=== PATIENT | female | born 1985 | race Caucasian/White ===

== ENCOUNTER 2017-04-13 12:16 | Inpatient (IN) | payer OTHER ==
[2017-04-13 12:39] VITALS: BMI 22.3
--- NOTE | 2017-04-13 13:06 | PDOC ---
History of Present Illness <Anabell Glez - Last Filed: 04/13/17 16:37> - General History Source: Patient Exam Limitations: No Limitations - History of Present Illness Initial Comments: 04/13/17 14:31 The patient is a 31 year old female, with a significant past medical history of Depression, Anxiety, Drug abuse who presents to the emergency department with abdominal distention today. Patient had a buttouck abscess drained at the doctor office yesterday. Patient had severe abdominal pain, 8/10 in severity, nonradiating with associated distention, nausea, diaphoresis and lightheadedness. Patient denies any trauma. Patient denies any previous surgeries. Upon arrival, patient is nauseous and is in severe pain. Patient denies chest pain, headache or dizziness. Patient denies diarrhea or constipation. Patient denies dysuria, frequency, urgency or hematuria. Patient denies sick contacts or recent travel. Allergies: NKA Past surgical history: rhinoplasty Social history: Drug abuse PCP: Dr. Dave <Elaina Huston - Last Filed: 04/13/17 17:04> - General Chief Complaint: Pain Stated Complaint: ABD PAIN Time Seen by Provider: 04/13/17 12:45 Past History - Past Medical History COPD: No Psychiatric Problems: Yes (depression, anxeity) Other medical history: drug abuse, clean for 6 months - Suicide/Smoking/Psychosocial Hx Smoking History: Never smoked Have you smoked in the past 12 months: Yes Number of Cigarettes Smoked Daily: 4 Information on smoking cessation initiated: Yes Hx Alcohol Use: No Drug/Substance Use Hx: Yes (ketamin,molley) <Anabell Glez - Last Filed: 04/13/17 16:37> <Elaina Huston - Last Filed: 04/13/17 17:04> - Past Medical History Allergies/Adverse Reactions: Allergies Allergy/AdvReac Type Severity Reaction Status Date / Time No Known Allergies Allergy Verified 04/13/17 12:32 Review of Systems - Review of Systems Able to Perform ROS?: Yes Comments:: 04/13/17 14:31 GENERAL/CONSTITUTIONAL: No fever or chills. No weakness. HEAD, EYES, EARS, NOSE AND THROAT: No change in vision. No ear pain or discharge. No sore throat. GASTROINTESTINAL: + nausea. +abdominal pain. +distention. No vomiting, diarrhea or constipation. GENITOURINARY: No dysuria, frequency, or change in urination. CARDIOVASCULAR: No chest pain or shortness of breath. RESPIRATORY: No cough, wheezing, or hemoptysis. MUSCULOSKELETAL: No joint or muscle swelling or pain. No neck or back pain. SKIN: No rash NEUROLOGIC: No headache, vertigo, loss of consciousness, or change in strength/ sensation. ENDOCRINE: No increased thirst. No abnormal weight change. HEMATOLOGIC/LYMPHATIC: No anemia, easy bleeding, or history of blood clots. ALLERGIC/IMMUNOLOGIC: No hives or skin allergy. <Elaina Huston - Last Filed: 04/13/17 17:04> *Physical Exam - Vital Signs Last Vital Signs Temp Pulse Resp BP Pulse Ox 98.0 F 125 H 18 122/69 100 04/13/17 12:34 04/13/17 12:34 04/13/17 12:34 04/13/17 12:34 04/13/17 12:34 <Anabell Glez - Last Filed: 04/13/17 16:37> - Vital Signs Last Vital Signs Temp Pulse Resp BP Pulse Ox 98.0 F 125 H 18 122/69 100 04/13/17 12:34 04/13/17 12:34 04/13/17 12:34 04/13/17 12:34 04/13/17 12:34 - Physical Exam Comments: 04/13/17 14:31 GENERAL: Awake, alert, and fully oriented, in no acute distress HEAD: No signs of trauma EYES: PERRLA, EOMI, sclera anicteric, conjunctiva clear ENT: Auricles normal inspection, hearing grossly normal, nares patent, oropharynx clear without exudates. Moist mucosa NECK: Normal ROM, supple, no lymphadenopathy, JVD, or masses LUNGS: Breath sounds equal, clear to auscultation bilaterally. No wheezes, and no crackles HEART: +Tachycardic.Regular rhythm, normal S1 and S2, no murmurs, rubs or gallops ABDOMEN: Soft, nontender. No guarding, no rebound. No masses. +Hypoactive bowel sounds. +Distended. EXTREMITIES: Normal range of motion, no edema. No clubbing or cyanosis. No cords, erythema, or tenderness NEUROLOGICAL: Cranial nerves II through XII grossly intact. Normal speech, normal gait SKIN: Warm, Dry, normal turgor, no rashes or lesions noted. PELVIC: + Scant brown vaginal discharge. No CMT. No adnexal tenderness. RECTAL: No stool in vault. No external or internal hemorrhoids. <Elaina Huston - Last Filed: 04/13/17 17:04> ED Treatment Course - LABORATORY CBC & Chemistry Diagram: 04/13/17 11:30 04/13/17 13:55 <Anabell Glez - Last Filed: 04/13/17 16:37> - LABORATORY CBC & Chemistry Diagram: 04/13/17 11:30 04/13/17 13:55 <Elaina Huston - Last Filed: 04/13/17 17:04> Medical Decision Making - Critical Care Time Total Critical Care Time (minutes): 60 Critical Care Statement: The care of this patient involved high complexity decision making to prevent further life threatening deterioration of the patient 's condition and/or to evaluate & treat vital organ system(s) failure or risk of failure. - Medical Decision Making 04/13/17 13:39 a/p: 31yo female with distended abd -recent deep I/D yesterday -will obtain stat CXR and ABD xray to r/o free air -will obtain labs npo ivf hydration will discuss with surgery 04/13/17 13:40 xray shows dilated loops call placed to Dr. Chaney 04/13/17 16:[address] chaney who will follow along 04/13/17 16:38 beta hcg + in urine ultrasound ordered will order beta quant 04/13/17 16:38 hgb 6.2 discuss w patient, now states having vaginal spotting x 1 month with brown discharge has IUD bimanual exam no adnexal ttp, no cmt, scant brown discharge rectal exam negative agrees to blood transfusion 04/13/17 16:39 ultrasound shows R adnexal mass, FF abd, most likely ruptured ectopic 04/13/17 16:39 dr chaney updated that more TOWER OPERATOR path not gen sx call to Dr. Lemos who is coming from clinic to take the patient to the OR BP 118/85 <Anabell Glez - Last Filed: 04/13/17 16:37> - Critical Care Time Total Critical Care Time (minutes): 60 Critical Care Statement: The care of this patient involved high complexity decision making to prevent further life threatening deterioration of the patient 's condition and/or to evaluate & treat vital organ system(s) failure or risk of failure. - Medical Decision Making 04/13/17 13:[address] Chaney via office number. Awaiting call back. 04/13/17 13:50 Dr. Chaney returned the page and the patients case was discussed. 04/13/17 16:21 Dr. Chaney paged. Awaiting call back. 04/13/17 16:[address] Lemos via cell phone number. Discussed case. Will take patient to OR Called OR Kristin for Dr. Valderrama. Will accept patient. 04/13/17 16:32 Valentina returned the page and the patients case was discussed. 04/13/17 17:04 Nancy in the ED. Discussed patient's case. Patient to be taken to the OR. <Elaina Huston - Last Filed: 04/13/17 17:04> *DC/Admit/Observation/Transfer - Discharge Dispostion Admit: Yes - Attestations Physician Attestion: 04/13/17 16:36 I, Dr. Anabell Glez DO, attest that this document has been prepared under my direction and personally reviewed by me in its entirety. I further attest, that it accurately reflects all work, treatment, procedures and medical decision -making performed by me. <Anabell Glez - Last Filed: 04/13/17 16:37> - Attestations Scribe Attestion: 04/13/17 14:31 Documentation prepared by Elaina Huston, acting as medical front desk coordinator for Anabell Glez DO <Elaina Huston - Last Filed: 04/13/17 17:04> Diagnosis at time of Disposition: Ruptured ectopic - Discharge Dispostion Condition at time of disposition: Critical - Referrals Referrals: Analy aDve MD [Primary Care Provider] -
[2017-04-13] MEDS ORDERED: ONDANSETRON 4 MG/2 ML VIAL IVPUSH ONE (13:07)
[2017-04-13] MEDS ORDERED: morphine CARPU-JECT 4 MG/1 ML DISP.SYRIN IVPUSH ONE (13:07)
[2017-04-13] MEDS ORDERED: SODIUM CHLORIDE 0.9% 1000 ML INFUS.BAG IV ONE (13:07)
[2017-04-13] MEDS ORDERED: FAMOTIDINE IV 20 MG/12 ML VIAL IVPB ONE (13:07)
[2017-04-13] MEDS ORDERED: morphine CARPU-JECT 8 MG/1 ML DISP.SYRIN ONE (13:15)
[2017-04-13] MEDS ORDERED: FAMOTIDINE 20 MG/50 ML IVPB 20 MG/50 ML MG IVPB ONE (13:15)
[2017-04-13] MEDS ORDERED: ONDANSETRON 4 MG/2 ML VIAL ONE (13:15)
[2017-04-13] MEDS ORDERED: HYDROmorphone HCL CARPU-JECT 1 MG/1 ML DISP.SYRIN IVPUSH ONE (13:48)
[2017-04-13] MEDS ORDERED: HYDROmorphone HCL CARPU-JECT 1 MG/1 ML DISP.SYRIN ONE (14:00)
[2017-04-13 14:06] LABS: MCH 29.6 pg (25.7-33.7); MCHC 33.1 g/dl (32.0-36.0); MEAN CELL VOLUME 89.3 fl (80-96); MEAN PLT VOLUME 8.1 fl (7.5-11.1); PLATELET COUNT 500 K/MM3 (134-434); RDW 15.2 % (11.6-15.6); WHITE BLOOD COUNT 20.2 K/mm3 (4.0-10.0)
[2017-04-13 14:13] LABS: URINE APPEARANCE SLCLOUDY; URINE BILIRUBIN NEGATIVE (NEGATIVE); URINE BLOOD 2+ (NEGATIVE); URINE COLOR YELLOW; URINE GLUCOSE (UA) 1+ (NEGATIVE); URINE KETONE NEGATIVE (NEGATIVE); URINE LEUK ESTERASE NEGATIVE (NEGATIVE); URINE NITRITE NEGATIVE (NEGATIVE); URINE PROTEIN NEGATIVE (NEGATIVE); URINE UROBILINOGEN NEGATIVE mg/dL (0.2-1.0)
[2017-04-13 14:30] LABS: URINE BACTERIA RARE /hpf (NONE SEEN); URINE MUCUS RARE; URINE RBC 1 /hpf (0-3); URINE WBC 15 /hpf (3-5)
[2017-04-13 14:34] LABS: INR 1.12 (0.82-1.09); PROTHROMBIN TIME (PATIENT) 12.6 SEC (9.98-11.88)
[2017-04-13 14:37] LABS: ACTIVATED PTT 25.1 SECONDS (26.9-34.4)
[2017-04-13 14:45] LABS: ALBUMIN 3.4 g/dl (3.4-5.0); ALK PHOS 72 U/L (45-117); ANION GAP 12 (8-16); BILIRUBIN,TOTAL 0.2 mg/dL (0.2-1.0); CALCIUM 8.6 mg/dL (8.5-10.1); CO2 24 mmol/L (21-32); CREATININE 0.6 mg/dL (0.55-1.02); GLUCOSE,RANDOM 104 mg/dL (74-106); MAGNESIUM 2.5 mg/dL (1.8-2.4); SGOT/AST 10 U/L (15-37); SGPT/ALT 21 U/L (12-78); TOT PROT 6.9 g/dl (6.4-8.2)
[2017-04-13] MEDS ORDERED: BUPIVACAINE HCL/PF 0.5% (5MG/ML) 10 ML VIAL ONE (17:09)
[2017-04-13] MEDS ORDERED: MIDAZOLAM HCL 2 MG/2 ML SINGLE DOSE VIAL ONE (17:23)
[2017-04-13] MEDS ORDERED: ETOMIDATE 20 MG/10 ML AMPUL IVPUSH ONE (17:26)
--- NOTE | 2017-04-13 17:37 | HP ---
Past Medical History - Primary Care Physician PCP:: Glenis Lemos - Admission Chief Complaint: 31 yrs lmp not known, > 5 years ago pt on Mirena iud . for 5 years on 08/25/2106, was not advised to get changed. presented in ER with sudden onset of pain , distemtion of abdomen, pain dizziness since last night History of Present Illness: h/o mirena inserted 5 yers ago. h/o secondary amenorrhea since then 5 years ended on 08/25/16, as per patient she was told she can keep for 1 more year .as per new research . she has been spotting last month on & off sudden pain acute in lower abdomen, accompanied by distention of abdomen , dizziness hcg 2584 miu, sono done noiup, iud in place in uterus , rt adnexa didtention around, copiuos fluid in all four quadrants of abdominal cavity rupture ectopic is suspected History Source: Patient - Past Medical History SHAREPOINT ADMIN: No: Migraine, Seizure Cardiovascular: No: HTN Pulmonary: No: Asthma Gastrointestinal: Yes: Constipation Reproductive: Yes: Other (mirena iud, 5 years . past MH before Mirena regular cycle x no pain x3-4 days) ...: 2 ...Para: 0 ...Induced : 1 Heme/Onc: Yes: Anemia Psych: Yes: Anxiety, Depression, Other (substance abuse patient is under care of psychiatrist, she follows twice a week for mental health) - Past Surgical History Hx Myomectomy: No Hx Transabdominal Cerclage: No Additional Surgical History: rhinoplasty. buttock abscess drainage rt side 2 days ago , pt on po antibiotics, does not know the name - Smoking History Smoking history: Never smoked Have you smoked in the past 12 months: Yes Aproximately how many cigarettes per day: 4 - Alcohol/Substance Use Hx Alcohol Use: No History of Substance Use: reports: Marijuana (pt also takes Erika as per ER information) Date of Last Use: 02/24/17 (approx 1 month ago ) Home Medications - Allergies Allergies/Adverse Reactions: Allergies Allergy/AdvReac Type Severity Reaction Status Date / Time No Known Allergies Allergy Verified 04/13/17 12:32 - Home Medications Home Medications: Ambulatory Orders Alprazolam [Xanax] 0.25 mg PO DAILY 04/13/17 Aripiprazole [Abilify] 10 mg PO DAILY 04/13/17 Dextroamphetamine/Amphetamine [Adderall Xr 20 mg Capsule] 20 mg PO TID 04/13/17 Sertraline HCl [Zoloft -] 25 mg PO DAILY 04/13/17 Physical Exam-FUNERAL ARRANGER Vital Signs: Vital Signs Temperature 98.8 F 04/13/17 16:15 Pulse Rate 111 H 04/13/17 16:15 Respiratory Rate 18 04/13/17 16:15 Blood Pressure 118/85 04/13/17 16:15 O2 Sat by Pulse Oximetry (%) 98 04/13/17 16:15 Constitutional: Yes: Severe Distress (pain 10/10), Pallor, Other (unable to lie flat.) Eyes: Yes: PERRL Neck: Yes: WNL Cardiovascular: Yes: Regular Rate and Rhythm, Other (tachycardia) Respiratory: Yes: WNL, CTA Bilaterally Gastrointestinal: Yes: Distention (genralized uniform distention), Tenderness ( superficial & deep tenderness all over abd), Tenderness, Rebound Renal/: Yes: CVA Tenderness - Left, CVA Tenderness - Right Pelvis: Yes: WNL External Genitalia: Yes: Normal Internal Exam Deferred: Yes Vaginal Exam: Yes: Discharge. No: Bleeding Cervix: Yes: Cerv Motion Tenderness, Other (iud dstring visualized). No: Bleeding Uterus: Yes: Normal, Tender Adnexa: Tender: Bilateral (unable to palpate due to pain ) Breast(s): Yes: WNL. No: Mass, Skin Changes Musculoskeletal: Yes: WNL Extremities: Yes: WNL. No: Calf Tenderness Edema: No Integumentary: Yes: Incision (right buttock area of incision drainage covered with dressing, yellowish discharge, large area of erythema with tenderness around), Rash (pigmented circular rash more prominent on upper extremities), Tattoos Neurological: Yes: WNL, Alert, Oriented ...Motor Strength: WNL Psychiatric: Yes: WNL, Alert, Oriented, Other (anxious & nervous) Labs: CBC, BMP 04/13/17 11:30 04/13/17 13:55 Laboratory Tests 04/13/17 04/13/17 04/13/17 11:30 13:55 14:43 AST 10 L ALT 21 Albumin 3.4 Beta HCG, Quant Urine Protein Negative Urine Glucose (UA) 1+ H Urine Blood 2+ H Urine WBC (Auto) 15 Urine RBC (Auto) 1 Stool Occult Blood Negative 04/13/17 15:18 AST ALT Albumin Beta HCG, Quant 2584.9 Urine Protein Urine Glucose (UA) Urine Blood Urine WBC (Auto) Urine RBC (Auto) Stool Occult Blood Problem List - Problem (1) Ruptured left tubal ectopic causing hemoperitoneum Code(s): O00.102 - LEFT TUBAL WITHOUT INTRAUTERINE ; K66.1 - HEMOPERITONEUM (2) Acute blood loss anemia Code(s): D62 - ACUTE POSTHEMORRHAGIC ANEMIA Assessment/Plan pt in ac distress due to rupture ectopic , hemoperitoeum , iud in utero , , severe anemia plan pt receiving 1st unit of pack cell
[2017-04-13] MEDS ORDERED: ceFAZolin SODIUM 1 GM VIAL IVPB ONE (17:46)
[2017-04-13] MEDS ORDERED: ceFAZolin SODIUM 1 GM VIAL ONE (18:00)
[2017-04-13] MEDS ORDERED: SODIUM CHLORIDE 0.9% P/F 10 ML VIAL IJ ONE (18:00)
[2017-04-13] MEDS ORDERED: DEXAMETHASONE SOD PHOSPHATE 4 MG/1 ML VIAL ONE (18:04)
[2017-04-13] MEDS ORDERED: GLYCOPYRROLATE 0.2 MG/1 ML VIAL ONE (18:19)
[2017-04-13] MEDS ORDERED: NEOSTIGMINE METHYLSULFATE 0.5 MG/ML - 10 ML MDV ONE (18:22)
[2017-04-13] MEDS ORDERED: KETOROLAC TROMETHAMINE 30 MG/1 ML VIAL ONE (18:41)
[2017-04-13] MEDS ORDERED: DEXAMETHASONE SOD PHOSPHATE 4 MG/1 ML VIAL IVPUSH PRN ×2 (19:08→20:09)
[2017-04-13] MEDS ORDERED: ONDANSETRON 4 MG/2 ML VIAL IVPUSH PRN ×2 (19:08→20:09)
[2017-04-13] MEDS ORDERED: PROMETHAZINE HCL 25 MG/1 ML VIAL IVPB PRN ×2 (19:08→20:09)
[2017-04-13] MEDS ORDERED: HYDROmorphone HCL CARPU-JECT 2 MG/1 ML DISP.SYRIN ONE (19:09)
[2017-04-13] MEDS: HYDROmorphone HCL CARPU-JECT 1 MG/1 ML DISP.SYRIN IVPUSH PRN ×2 (19:10→19:15)
[2017-04-13] MEDS ORDERED: HYDROmorphone *PCA* 10MG/50ML DISP.SYRIN PCA ONE (19:10)
[2017-04-13] MEDS ORDERED: LACTATED RINGERS SOLUTION 1,000 ML IV SCH (19:15)
[2017-04-13] MEDS ORDERED: HYDROmorphone *PCA* 10MG/50ML DISP.SYRIN PCA SCH ×2 (19:15→20:09)
[2017-04-13] MEDS ORDERED: DEXTROSE 5%-LACTATED RINGERS 1,000 ML IV SCH (19:30)
[2017-04-13 19:45] LABS: TOTAL CELLS COUNTED 100
[2017-04-13 19:47] LABS: PLATELET ESTIMATE SLT INCREASE
[2017-04-13] MEDS ORDERED: HYDROmorphone HCL CARPU-JECT 1 MG/1 ML DISP.SYRIN IVPUSH PRN (20:09)
[2017-04-13 21:05] LABS: URINE LEUK ESTERASE Negative (NEGATIVE)
--- NOTE | 2017-04-13 21:05 | OP ---
Operative Note - Note: Operative Date: 04/13/17 Pre-Operative Diagnosis: rupture ectopic , with hemoperitoneum iud in utero Operation: expl lap, left salpingectomy, evacuation of blood clots , removal of iud Findings: peritoneal cavity full of blood clots approx 1000 ml , ut ns Left tube distended in midamulary portion, ruptured at antimesentric border , salpingectomy done left ovary, Rigt Tube & Right ovary normal Surgeon: Glenis Lemos Board Layer: Emani Gonzales Anesthesiologist/THREAD LASTER: Amaury Eaton Anesthesia: General Specimens Removed: blood clots. Left tube & contents. iud Estimated Blood Loss (mls): 1,000 Drains, Volume Out (mls): 800 (jessika color , garcia out put ) Blood Volume Replaced (mls): 1,000 (3 units pack cells, 4th started ) Fluid Volume Replaced (mls): 1,200 (iv Ancef 1 gm ) Operative Report Dictated: Yes
[2017-04-14] MEDS: CLINDAMYCIN 900 MG PREMIX IVPB 900 MG/50 ML BAG IVPB SCH ×3 (01:34→19:30)
[2017-04-14] MEDS ORDERED: oxyCODONE HCL 5 MG TABLET PO PRN (07:59)
--- NOTE | 2017-04-14 08:33 | PN ---
Progress Note (SOAP) - Subjective Chief Complaint: c/o pain , 01/03, , unable to move side to side not oob yet pt has not voided since garcia catheter is taken out History of Present Illness: s/p expl lap left salpingectomy , evacuation hemoperitoneum, removal of iud on 04/13/17 POD #1 - Current Medications Current Medications: Active Medications Acetaminophen (Tylenol -) 650 mg PO Q4H PRN PRN Reason: FEVER OR PAIN Ascorbic Acid (Vitamin C -) 500 mg PO BID BALDEV Diphenhydramine HCl (Benadryl Injection -) 12.5 mg IVPUSH ONCE PRN PRN Reason: FOR ITCHING Docusate Sodium (Colace -) 100 mg PO TID BALDEV Ferrous Sulfate (Feosol -) 325 mg PO TIDCM [facility] Dextrose/Lactated Ringer's (D5-Lr -) 1,000 mls @ 125 mls/hr IV ASDIR BALDEV Last Admin: 04/13/17 21:30 Dose: 125 mls/hr Clindamycin Phosphate (Cleocin 900 Mg Premix Ivpb -) 900 mg in 50 mls @ 100 mls /hr IVPB Q8H-IV BALDEV Stop: 04/15/17 01:59 Last Admin: 04/14/17 01:34 Dose: 100 mls/hr Ibuprofen (Motrin -) 600 mg PO Q4H PRN PRN Reason: PAIN Ondansetron HCl (Zofran Injection) 4 mg IVPUSH Q4H PRN PRN Reason: NAUSEA AND/OR VOMITING Oxycodone HCl (Roxicodone -) 5 mg PO Q4H PRN PRN Reason: PAIN Oxycodone HCl (Roxicodone -) 10 mg PO Q3H PRN PRN Reason: SEVERE PAIN Simethicone (Mylicon -) 80 mg PO Q4H PRN PRN Reason: GAS - Objective Vital Signs: Vital Signs Temperature 98.6 F 04/14/17 06:00 Pulse Rate 84 04/14/17 06:00 Respiratory Rate 18 04/14/17 06:00 Blood Pressure 103/57 04/14/17 06:00 O2 Sat by Pulse Oximetry (%) 99 04/13/17 21:30 Constitutional: Yes: Calm, Other (In pain ) Eyes: Yes: WNL HENT: Yes: WNL Neck: Yes: WNL, Supple Cardiovascular: Yes: WNL Respiratory: Yes: WNL, Regular, CTA Bilaterally (shallow breathing ) Gastrointestinal: Yes: WNL, Normal Bowel Sounds, Soft. No: Distention, Tenderness Genitourinary: No: CVA Tenderness - Left, CVA Tenderness - Right Extremities: Yes: WNL. No: Calf Tenderness Edema: No Integumentary: Yes: Other (Rt Buttock abscess incision hardly any drainage is noted .induration around, erythema around is less than yesterday ) Wound/Incision: Yes: Sutures Intact, Other (Fressing intact, not changed yet ). No: Reddened, Bleeding Neurological: Yes: WNL ...Motor Strength: Yes: WNL Psychiatric: Yes: WNL, Alert, Oriented Labs Lab Results: CBC, BMP 04/13/17 11:30 04/13/17 13:55 Laboratory Tests 04/14/17 04/14/17 08:30 08:30 WBC 16.9 H RBC 3.46 L D Hgb 10.2 L D Hct 30.2 L D Plt Count 294 D Neutrophils % 73.2 Lymphocytes % 17.3 Sodium 138 Potassium 4.7 Chloride 105 Carbon Dioxide 26 Anion Gap 7 L BUN 6 L D Random Glucose 107 H Calcium 8.1 L Problem List - Problems (1) Ruptured left tubal ectopic causing hemoperitoneum Code(s): O00.102 - LEFT TUBAL WITHOUT INTRAUTERINE ; K66.1 - HEMOPERITONEUM (2) Acute blood loss anemia Code(s): D62 - ACUTE POSTHEMORRHAGIC ANEMIA (3) Encounter for removal of intrauterine contraceptive device (IUD) Code(s): Z30.432 - ENCOUNTER FOR REMOVAL OF INTRAUTERINE CONTRACEPTIVE DEVICE Assessment/Plan s/p expl lap , Left salpingectomy , evacuation hemoperitoneum, IUD removal s/p 4 units pack cell units . h/o depression & anxiety, Pt in pain . post op blood results still pending Plan : encourage deep breathing, use Incentive spirometer encourage po fluids encourage ambulation advance diet . d/c REFUSE DRIVER , change to PO pain meds ct iV clindamycin po iron & vitamins
--- NOTE | 2017-04-14 08:38 | PN ---
Progress Note (short form) - Note Progress Note: ID consult dictated d/w Dr Cruz imp/reccd 31 year old female with pmh of anxiety, depression, ADHD, recurrent skin lesions from picking her skin- denies IVDU recent bilateral thigh abscesses, drained one month ago at [facility]- given po antibiotics, the right abscess recurred and she was seen by the surgeon again on Wednesday and had the abscess drained- cultures are pending she denies fevers or chills denies history of MRSA-was given po antibiotics- she doesn't know what on Wednesday she developed severe abdominal pain, came to the ED and was found to have a ruptured ectopic she is s/p surgery last evening doing well no fevers currently on clindamycin denies HIV RF- declines testing at this time s/p drainage right buttock abscess continue clindamycin obtain records from [place] so we can adjust antibiotics blood cultures s/p ex lap for ruptured ectopic yesterday Problem List - Problems (1) Abscess of right buttock Code(s): L02.31 - CUTANEOUS ABSCESS OF BUTTOCK (2) Ruptured ectopic Code(s): O00.90 - UNSPECIFIED ECTOPIC WITHOUT INTRAUTERINE
[2017-04-14 08:55] LABS: BASO % 0.5 % (0-2.0); MCH 29.6 pg (25.7-33.7); MCHC 33.9 g/dl (32.0-36.0); MEAN CELL VOLUME 87.3 fl (80-96); MEAN PLT VOLUME 7.7 fl (7.5-11.1); NEUT % 73.2 % (42.8-82.8); PLATELET COUNT 294 K/MM3 (134-434); RDW 14.5 % (11.6-15.6); WHITE BLOOD COUNT 16.9 K/mm3 (4.0-10.0)
[2017-04-14 09:19] LABS: ANION GAP 7 (8-16); CALCIUM 8.1 mg/dL (8.5-10.1); CO2 26 mmol/L (21-32); CREATININE 0.6 mg/dL (0.55-1.02); GLUCOSE,RANDOM 107 mg/dL (74-106)
[2017-04-14] MEDS: ASCORBIC ACID 500 MG TABLET (FP) PO SCH ×2 (10:42→23:53)
[2017-04-14] MEDS ORDERED: PCA PUMP KEY 1 EACH EACH ONE (11:40)
[2017-04-14] MEDS: FERROUS SO4 325 MG TABLET (FP) PO SCH ×2 (11:43→17:00)
[2017-04-14] MEDS: SIMETHICONE 80 MG TAB.CHEW (FP) PO PRN ×2 (11:43→16:58)
[2017-04-14] MEDS: oxyCODONE HCL 5 MG TABLET PO PRN ×3 (11:43→20:43)
[2017-04-14] MEDS: IBUPROFEN 600 MG TABLET (FP) PO PRN ×3 (11:44→23:29)
--- NOTE | 2017-04-14 12:33 | CONS ---
DATE OF CONSULTATION: 04/14/2017 REQUESTING PHYSICIAN: Glenis Lemos MD Patient was seen and examined. The case was discussed with Dr. Lemos. HISTORY OF PRESENT ILLNESS: This is a 31-year-old woman with a history of ADHD, depression, and anxiety. She presented to the emergency room yesterday with severe abdominal pain and anemia. She was found to have an abdominal distension with dizziness. She was found to have a ruptured ectopic . She was taken emergently to the operating room. She had an exploratory laparotomy. She was found to have hemoperitoneum. She also had an IUD that was in place that was removed at the same time. She has tolerated surgery well. She has no fevers. Incidentally, she has been having a problem with her skin. She sees a [employer] financial[employer] consultant. She picks at her skin, she states, due to her anxiety. She has multiple scars on both her arms, and she states recently about 6 months ago, she had a cyst on her left arm that was treated with antibiotics and healed. One month ago, she developed bilateral sort of upper thigh buttock abscesses that were drained at [facility] by a surgeon there. She was also given oral antibiotics. The left buttock healed. The right buttock occurred. She was there on Wednesday and had it drained again. She was given oral antibiotics. She does not know the name of any of the antibiotics she took. She has no fevers or chills. She denies intravenous drug use. She does have a former history of substance use that she states were marijuana and oral agents. She has been substance-free, she reports, for 2-1/2 years. PAST MEDICAL HISTORY: Notable for constipation. She had an IUD for 5 years. She has a history of anemia, of anxiety, depression, and ADHD. She is under the care of a psychiatrist whom she sees 2 times a week. PAST SURGICAL HISTORY: Notable for rhinoplasty and the buttock drainages. SUBSTANCE USE: To me, she states she has been clean for 2-1/2 years, though per the admission history and physical examination, she last used February 24. There is no history of any cigarette use. ALLERGIES: She has no known drug allergies. MEDICATIONS: Include Xanax, Abilify, Adderall, and sertraline. SOCIAL HISTORY: She lives in an apartment with her boyfriend. She is not working at present. She denies any substance use. REVIEW OF SYSTEMS: She reports some abdominal pain that is improved. She was able to urinate this morning. She has not had a bowel movement. She is hungry. There are no fevers or chills. PHYSICAL EXAMINATION Vital signs: Her temperature is 98.6, pulse of 84, blood pressure 103/57, respiratory rate 18. HEENT: She is normocephalic. Her eyes are anicteric. She has no conjunctival hemorrhages. She has no thrush. Neck: Supple. Lungs: Clear to auscultation. Heart: Regular rate and rhythm. Abdomen: Soft. She has an incision with a bandage on her lower abdomen. Extremities: Without edema. Skin: Notable for multiple scars on both her arms. Her left buttock us well healed. Her right buttock has an opening. There is minimal induration, and she has serous drainage. DIAGNOSTIC DATA: Labs are notable for a white count of 20.2 yesterday with a hemoglobin of 6.2, platelets of 100,000. Labs today are pending. Chemistries yesterday, BUN and creatinine were normal, and her LFTs were normal. Urinalysis had 15 white cells with negative leukocyte esterase. She had a transvaginal ultrasound that showed IUD in place, large volume fluid in her belly. Of note, she states that she was told by her doctors at [facility] that she does not have MRSA from prior cultures of these abscesses. SUMMARY: 1. This is a 31-year-old woman status post drainage of right buttock abscess. I would continue clindamycin and obtain records from [facility] so we can adjust her antibiotics. Would obtain blood cultures as well for completeness. 2. Status post exploratory laparotomy for ruptured ectopic yesterday, management per Dr. Lemos. She denies human immunodeficiency virus risk factors and declines testing at this time, which could certainly be done as an outpatient. I spoke to her nurse and asked her to please contact me if they were able to obtain the records from [facility]. I spoke with Dr. Lemos regarding the patients care. IKE MESA M.D. [id number]
--- NOTE | 2017-04-14 13:11 | PN ---
Progress Note (short form) - Note Progress Note: Anesthesia/Pain Pt seen and examined A;Alert and awake comfortable O: Vital Signs Temperature 98.6 F 04/14/17 09:48 Pulse Rate 70 04/14/17 09:48 Respiratory Rate 18 04/14/17 09:48 Blood Pressure 99/54 04/14/17 09:48 O2 Sat by Pulse Oximetry (%) 99 04/14/17 09:00 CBC, BMP 04/14/17 08:30 04/14/17 08:30 A/P s/p Laparoscopic salphingectomy STUDIO ASSISTANT stopped Doing well post op Continue current care Hiro Watson MD
[2017-04-14] MEDS: DOCUSATE SODIUM 100 MG CAPSULE (FP) PO SCH ×2 (14:09→20:43)
[2017-04-14] MEDS: ACETAMINOPHEN 325 MG TABLET (FP) PO PRN (20:43)
[2017-04-15] MEDS: DOCUSATE SODIUM 100 MG CAPSULE (FP) PO SCH ×3 (00:16→13:49)
[2017-04-15] MEDS: ACETAMINOPHEN 325 MG TABLET (FP) PO PRN ×3 (01:29→13:33)
[2017-04-15] MEDS: oxyCODONE HCL 5 MG TABLET PO PRN ×4 (01:29→13:33)
[2017-04-15 07:49] LABS: MCH 29.2 pg (25.7-33.7); MEAN CELL VOLUME 88.5 fl (80-96); MEAN PLT VOLUME 7.3 fl (7.5-11.1); PLATELET COUNT 291 K/MM3 (134-434); RDW 14.6 % (11.6-15.6); WHITE BLOOD COUNT 15.4 K/mm3 (4.0-10.0)
[2017-04-15] MEDS: FERROUS SO4 325 MG TABLET (FP) PO SCH ×2 (08:32→13:17)
[2017-04-15] MEDS: IBUPROFEN 600 MG TABLET (FP) PO PRN (08:33)
[2017-04-15] MEDS: ASCORBIC ACID 500 MG TABLET (FP) PO SCH (09:12)
--- NOTE | 2017-04-15 10:45 | OP ---
DATE OF OPERATION: 04/13/2017 PREOPERATIVE DIAGNOSES: Ruptured ectopic with hemoperitoneum, intrauterine device in utero. OPERATION: Exploratory laparotomy, left salpingectomy, evacuation of the blood, removal of intrauterine device. SURGEON ; Dr Canelo COFFEY SURGEON ; Dr Christian Joaquin ANESTHSIOLOGIST ; Dr Angelito Rebolledo FINDINGS: This is a 31-year-old 2, para 0-0-1-0, has had Mirena IUD for 5 years, which ended in August 2016, and patient continued to have the same IUD still , and she had amenorrhea secondary to Mirena IUD , history of spotting blood on and off for the last 1 month and presented with onset of acute pain, dizziness, and abdominal distention in the emergency room. Beta hCG was 2584 and ultrasound showed no IUP, and right adnexa was distended, distention around the adnexal area. All quadrants were full of fluid, possible blood. Patient's hemoglobin was 6 g. IV 1st Pack cell unit was started in from the ER, and patient was brought to the OR. PROCEDURE: Patient was placed under general anesthesia. Metzger catheter was placed, and since patient was bleeding and needed more blood, it was decided to do a laparotomy instead of doing a laparoscopy, so laparotomy was started .. A Pfannenstiel incision was made about 3 inches. The skin, subcutaneous tissue, anterior rectus sheath were incised transversely. Bleeding points were clamped and cauterized rectus muscle was from the rectus sheath. Parietal peritoneum was opened vertically and blood clots were large. Blood clots kept coming out from the peritoneal cavity, removed and then the uterus was brought out of the incision. On the left side of the tube, the ampulary portion was distended with blood clots on the antimesenteric border which was ruptured with blood clots, and active bleeding was noted. Then starting from the fimbrial end towards the cornual l end of left tube , below the tube in mesosalpinx area in multiple bites with Ligasure area was cauterized and cut until the whole tube was removed, and hemostasis was verified, and then all the blood clots, as much as possible, were removed. The left ovary was normal, and right tube and ovary were normal. Some adhesions were there on the left side between the bowels and the lateral pelvic wall. Irrigation was done, and hemostasis was verified. Once again, sponge, instrument, needle count was correct. Closure of the abdomen was done. Parietal peritoneum was closed with 0 Vicryl suture, muscles were approximated together with interrupted 0 Vicryl suture, anterior rectus sheath was closed with 0 Vicryl suture, continuous sutures were taken, and then subcutaneous tissue, hemostasis was verified. Interrupted stitches were taken with 2-0 Vicryl suture, and the skin was approximated with 4-0 Biosyn V-Loc suture. Steri-Strips were applied, pressure dressing was given and then Lithotomy position was given, and vagina was cleaned with Betadine. Silveira speculum was put in, and the IUD string was held with the Bozena clamp, and the IUD was removed. Patient tolerated procedure well, and she was transferred to the recovery room in stable condition. Estimated blood loss was 1000 mL. Urine output intraoperatively was 800 mL. She completed 3 units of the blood in the OR, and the 4th unit was started. Total IV infusion was 1200 mL, and blood was approximately 1000 mL. She received IV Ancef prior to the incision. Ja [id number] MTDD
[2017-04-15] MEDS ORDERED: BISACODYL 10 MG SUPP.RECT RC ONE (11:44)
--- NOTE | 2017-04-15 11:50 | DS ---
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 voiding without difficulty. s/p Expl lap for Rupture Ectopic , Left Salpingectomy, Evacuation of Hemoperitoneum , Removal of IUD on 04/13/17) Eyes: Yes: WNL HENT: Yes: WNL, Normocephalic Neck: Yes: WNL Cardiovascular: Yes: WNL, Regular Rate and Rhythm Respiratory: Yes: WNL, CTA Bilaterally Gastrointestinal: Yes: WNL, Normal Bowel Sounds, Soft, Other (bm not done. passing flatus). No: Distention, Tenderness Renal/: Yes: WNL, Other (voiding without difficulty). No: CVA Tenderness - Left, CVA Tenderness - Right Breast(s): Yes: WNL Musculoskeletal: Yes: WNL Extremities: Yes: WNL. No: Calf Tenderness Edema: No Integumentary: Yes: Rash (skin of extrmities shows multiple circular hyperpogmented spots , secndary to itching scratching in the past), Other (Left Buttock Abscess s/p drainage 1 week ago by surgeon, wound healing, erythema & induration ,tenderness markedly less , healing well) Wound/Incision: Yes: Clean/Dry, Well Approximated, Sutures Intact, Steri Strips , Open to air. No: Reddened, Bleeding, Excoriated Neurological: Yes: WNL ...Motor Strength: WNL Psychiatric: Yes: WNL, Alert, Oriented, Other (pt is teary t times . h/o anxiety , depression under care of psychiatrist, willcontinue her meds & follow with MD) Labs: CBC, BMP 04/15/17 07:30 04/14/17 08:30 s/p total four pack cell transfusions in OR & ER Discharge Summary Reason For Visit: RUPTURED ECTOPIC PREGN,E LAPAROTOMY,HYSTERECTOMY Current Active Problems Abscess of right buttock (Acute) Acute blood loss anemia (Acute) Encounter for removal of intrauterine contraceptive device (IUD) (Acute) Ruptured ectopic (Acute) Ruptured left tubal ectopic causing hemoperitoneum (Acute) Condition: Stable - Instructions Diet, Activity, Other Instructions: Discharge Instructions * Out of Bed * Keep Incision wound dry * Regular, High iron & protein Diet * Ying Care * Avoid sex for 4 weeks. * Call [phone] for follow up visit at [address] [place] [address] Lemos On Wednesday04/27/17. * Follow with Your surgeon for Buttock abscess * Follow with your Psychiatrist & resume your Home Meds . * continue the antibiotics given to you by your surgeon . * continue dressing of buttock abscess wound If you experience excessive bleeding or fever over 101 degrees, call doctor, the clinic or go to the Emergency Room. Referrals: Analy Dave MD [Primary Care Provider] - Glenis Lemos MD [Staff Physician] - - Home Medications Comprehensive Discharge Medication List: Ambulatory Orders Alprazolam [Xanax] 0.25 mg PO DAILY 04/13/17 Aripiprazole [Abilify] 10 mg PO DAILY 04/13/17 Dextroamphetamine/Amphetamine [Adderall Xr 20 mg Capsule] 20 mg PO TID 04/13/17 Sertraline HCl [Zoloft -] 25 mg PO DAILY 04/13/17 Acetaminophen [Tylenol .Regular Strength -] 500 mg PO Q4H PRN #30 tablet Ascorbic Acid [Vitamin C -] 500 mg PO BID #60 tablet 04/14/17 Docusate Sodium [Colace -] 100 mg PO TID #60 capsule 04/14/17 Ferrous Sulfate [Feosol] 325 mg PO TIDCM #90 tab 04/14/17 Ibuprofen [Motrin -] 600 mg PO Q4H PRN #30 tablet 04/14/17 Oxycodone HCl 10 mg PO Q6H PRN #30 tablet MDD 40 MG 04/15/17 Oxycodone HCl [Roxicodone -] 10 mg PO Q6H PRN #30 tablet MDD 40 mg daily 10 q6h 04/15/17
[2017-04-15 14:08] VITALS: BP 122/54; PULSE 85; TEMP 97.9
--- NOTE | 2017-04-15 16:56 | PATH ---
Surgical Pathology Report Patient Name: SANTO CARTY [facility]. Rec. 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 Specimen(s) Received A: LEFT FALLOPIAN TUBE AND CONTENTS B: BLOOD CLOTS C: IUD Clinical History Ectopic rupture Final Diagnosis A. FALLOPIAN TUBE, LEFT, EXPLORATORY LAPAROTOMY WITH LEFT SALPINGECTOMY: CHORIONIC VILLI IN A BACKGROUND OF HEMORRHAGE PRESENT WITHIN THE FALLOPIAN TUBE, CONSISTENT WITH ECTOPIC . B. BLOOD CLOT, REMOVAL: ORGANIZED BLOOD/FIBRIN CLOT. C. INTRAUTERINE DEVICE (IUD), REMOVAL: INTRAUTERINE DEVICE. MACROSCOPIC DIAGNOSIS. Electronically Signed Niyah Musa M.D. Gross Description A. Received in formalin labeled "left fallopian tube and contents," is an 8 cm in length fimbriated fallopian tube. The outer surface is corrales-teran with a focal rupture site with attached blood clot. Sectioning reveals a dilated lumen containing red-brown blood clot. Senior Cytogenetic Technologist sections are submitted in 4 cassettes as follows: 1-fimbria; 1-6-aujfzoylcgtohg cross sections of tube B. Received in formalin labeled "blood clots," is a 25.0 x 23.0 x 7.0 cm aggregate of red-brown blood clot. Senior Cytogenetic Technologist sections are submitted in 3 cassettes. C. Received fresh labeled "removed IUD," is a 3 cm in length T-shaped device with an attached string, consistent with an IUD. No soft tissue is present. No sections are submitted, gross only. 04/14/2017 saudi04/14/2017
== END 2017-04-15 14:15 | disposition home or self-care (01) | DRG 777 ==
LOC: JER 12:16 → JASU-SURG 16:36 → J3W 17:00
PROVIDERS: ADMIT Obstetrics & Gynecology; ATTEND Obstetrics & Gynecology
PROC: 30233N1 Transfusion of Nonautologous Red Blood Cells into Peripheral Vein, Percutaneous Approach (ICD-10-PCS; 2017-04-13)
PROC: 0UT60ZZ Resection of Left Fallopian Tube, Open Approach (ICD-10-PCS; principal; 2017-04-13 17:51)
PROC: 0UPD7HZ Removal of Contraceptive Device from Uterus and Cervix, Via Natural or Artificial Opening (ICD-10-PCS; 2017-04-13 17:51)
DX: O00.102 Left tubal pregnancy without intrauterine pregnancy (principal); K66.1 Hemoperitoneum; D62 Acute posthemorrhagic anemia; L02.31 Cutaneous abscess of buttock; F41.8 Other specified anxiety disorders; F90.8 Attention-deficit hyperactivity disorder, other type
CPT/HCPCS: 36415; 36430; 71010-TC; 74020-TC; 76817-TC; 80048; 80053; 81003; 81015; 82272; 83605; 83690; 83735; 84702; 84703; 85025; 85027; 85610; 85730; 86850; 86900; 86901; 86922; 87040; 88300-TC; 88304-TC; 88305-TC; 94010; 94760; 99284-25; P9038; P9058